=== PATIENT | female | born 1975 | race Caucasian/White ===

== ENCOUNTER → 2018-02-18 | Outpatient (CLI) | payer OTHER | END | disposition home or self-care (01) | LOC: ECHO 10:54 | DX: R01.1 Cardiac murmur, unspecified (principal) | CPT/HCPCS: 93306 ==

== ENCOUNTER → 2020-12-31 | Outpatient (CLI) | payer OTHER ==
--- NOTE | 2021-01-02 14:01 | KCIC ---
Bilateral digital screening mammograms: Reason for examination: Routine screening. Comparison is made to previous studies dated 04/13/2019 and 11/06/2014. Interpretation was made with the benefit of CAD. The skin and nipples show no abnormalities. No abnormal axillary lymph nodes are seen. The breast par enchyma shows scattered fibroglandular density. (Breast density: Category B.) There appears to be natalia e new asymmetric parenchyma superiorly on the left oblique view probably in the 12:00 C position of t he left breast. There also appears to be a small nodular density medially in the left cc view probabl y at the 10:00 B position of the left breast. There also appears to be new nodular asymmetry posterio r medially in the right breast seen on cc view. Further evaluation with bilateral coned compression v iews and ultrasound is recommended. No suspicious calcifications are seen. Impression: Small nodule at approximately the 10:00 B position of the left breast. Parenchymal asymmetry superior ly probably at the 12:00 C position of the left breast. Nodularity posterior medially in the right br east seen only on cc view. Recommend further evaluation with bilateral coned compression views and ul trasound. BI-RADS Category 0: Incomplete. Needs additional imaging evaluation. "Our facility is accredited by the [employer]ammography [employer]." This patient's information has been entered into a reminder system for the patient to be notified wit h the results of her examination and a target date for the next mammogram. Electronically signed by: Wendy Solis MD (01/02/2021 1:59 PM) [id number]
== END ==
LOC: KCIC MAMMO 15:47
PROVIDERS: ATTEND Family Medicine
DX: Z12.31 Encounter for screening mammogram for malignant neoplasm of breast (principal); N64.89 Other specified disorders of breast
CPT/HCPCS: 77067

== ENCOUNTER → 2021-01-09 | Outpatient (CLI) | payer OTHER ==
--- NOTE | 2021-01-09 19:52 | RAD ---
DATE: 01/09/2021 EXAM: DIGITAL DIAGNOSTIC BILATERAL, BREAST RIGHT HISTORY: Recall from screening mammogram for bilateral asymmetries. COMPARISON: Screening mammogram 12/31/2020 This study was interpreted with the benefit of Computerized Aided Detection (CAD). Breast Density: SCATTERED The breast parenchyma shows scattered fibroglandular densities. Breast parenchyma level B. FINDINGS: The focal asymmetries in the left breast resolves with spot compression. The asymmetry in the medial right breast on CC view does not resolve with CC spot compression but changes configuration on rolled views and is not seen on MLO view. Ultrasound: The right breast was scanned from 12:00 to 6:00 posteriorly. There is normal fibroglandular tissue. No suspicious mass or cyst to correlate with the mammographic abnormality. IMPRESSION: No evidence of malignancy in either breast. BI-RADS CATEGORY: 2 BENIGN FINDING(S) RECOMMENDED FOLLOW-UP: 12M 12 MONTH FOLLOW-UP PQRS compliance statement: Patient information was entered into a reminder system with a target due date for the next mammogram. Mammography is a sensitive method for finding small breast cancers, but it does not detect them all and is not a substitute for careful clinical examination. A negative mammogram does not negate a clinically suspicious finding and should not result in delay in biopsying a clinically suspicious abnormality. "Our facility is accredited by the [employer]ammography [employer]."
== END ==
LOC: MAMMO 10:00
PROVIDERS: ATTEND Family Medicine
DX: N63.20 Unspecified lump in the left breast, unspecified quadrant (principal); N63.10 Unspecified lump in the right breast, unspecified quadrant
CPT/HCPCS: 76641; 77066